=== PATIENT | female | born 1975 | race African-American/Black ===

== ENCOUNTER 2016-09-04 08:59 | Emergency (ER) | payer OTHER ==
[~2016-09-04] VITALS: Ht 167.6 cm; Wt 61.2 kg
[~2016-09-04 08:59] MED LIST: CYCLOBENZAPRINE10 MG ORAL; DOXYCYCLINE MO100 MG ORAL; GABAPENTIN300 MG ORAL; HYDROCODON-ACE1 EA15 ORAL; IBUPROFEN600 MG ORAL; IBUPROFEN800 MG ORAL; LEVAQUIN500 MG ORAL; LEVAQUIN750 MG ORAL; MACROBID100 MG ORAL; METRONIDAZOLE500 MG ORAL; NKM; TESSALON PERLE100 MG ORAL; TRAMADOL HCL50 MG ORAL
[2016-09-04 09:17] VITALS: BP 130/89
[2016-09-04] MEDS ORDERED: Lidocaine 1% 10mg/ml/EPI 0.01mg/ml 50ml INJ ONE (10:15)
--- NOTE | 2016-09-04 11:46 | Diagnostic Imaging Report ---
Indication: PAIN Technique: 3 views right hand Comparison: none Findings: Metallic foreign body, presumably the broken off tip of a needle, measuring approximately 13 mm length projects immediately medial and posterior to the third metacarpal phalangeal joint. There is some associated soft tissue swelling. No associated bony abnormality. No acute fractures. No dislocations. Impression: Positive for foreign body No acute bony trauma Findings discussed by phone with Dr. Candelaria in the emergency room at the time of interpretation
[2016-09-04] MEDS ORDERED: Bacitracin Oint UD TOPIC ONE (12:24)
[2016-09-04 12:32] VITALS: BP 121/76
--- NOTE | 2016-09-04 12:49 | Diagnostic Imaging Report ---
Indication: PAIN Technique: 3 views right hand Comparison: none Findings: Previously demonstrated foreign body persists, position unchanged adjacent to the third metacarpal phalangeal joint. Threads are now more clearly identified on the prior exam, and the foreign body appears to be a screw rather than a needle. Impression: Unchanged foreign body, as described. Findings discussed by phone with Dr. Candelaria in the emergency room previously
--- NOTE | 2016-09-07 07:58 | Emergency Room Report ---
History of Present Illness General Chief Complaint: Pain Source: Patient, Medical Record Present Illness HPI [id number] c/o severe pain for 1 day to right third knuckle. Patient felt acute sharp pain to area while tucking bed sheets into bed at home. Noticed small puncture wound at base of 3rd knuckle but couldnt see anything else. C./o pain and swelling to area. Denies fever/chills, pus. Allergies: Coded Allergies: FISH CONTAINING PRODUCTS (Unverified Allergy, Unknown, 01/26/14) SULFA (SULFONAMIDE ANTIBIOTICS) (Unverified Allergy, Unknown, 01/26/14) TRAMADOL (Verified Allergy, Unknown, 09/04/16) Patient History Past Medical History: none Past Surgical History: none Pertinent Family History: none Social History: Denies: alcohol use, drug use, smoking Last Menstrual Period: 08/22/16 Now: No Immunizations: UTD Reviewed Nursing Documentation: PMH: Agreed, PSxH: Agreed Nursing Documentation-PMH Past Medical History: No History, Except For Hx Gastrointestinal Problems: No - C/S in 2013 Review of Systems All Other Systems: negative except mentioned in HPI Physical Exam Vital Signs Date Time Temp Pulse Resp B/P Pulse Ox O2 Delivery O2 Flow Rate FiO2 09/04/16 09:08 97.5 59 16 130/89 98 Room Air Sp02 EP Interpretation: reviewed, normal General Appearance: normal inspection, well appearing, no apparent distress, alert, GCS 15, non-toxic Head: normocephalic, atraumatic Eyes: bilateral eye EOMI, bilateral eye PERRL ENT: normal ENT inspection, hearing grossly normal, normal voice Neck: normal inspection, full range of motion, supple, no bony tend Respiratory: normal inspection, lungs clear, normal breath sounds, no respiratory distress, no retraction, no wheezing Cardiovascular #1: regular rate, rhythm, no edema Gastrointestinal: normal inspection, normal bowel sounds, non tender, soft, no guarding, no hernia Genitourinary: no CVA tenderness Musculoskeletal: normal inspection, back normal, normal range of motion, Collette' s Sign negative Neurologic: normal inspection, alert, oriented x3, responsive, broomcorn scraper III-XII nml as tested, motor strength/tone normal, speech normal Psychiatric: normal inspection, judgement/insight normal, mood/affect normal Skin: other - Right hand: dorsal aspect. punctate healing wound to base of 3rd knucle. Palpable FB beneath surface. No obvious redness, swelling, erythema. Procedures Additional Procedure Procedure Narrative Foreign body removal Dorsal aspect of 3rd metacarpal joint Area cleaned with betadine Area asthesized with lidocaine with epi Scalpel incision made over knuckle Incision widened with forceps Metal FB identified and extracted with forceps 2.5cm piece of metal vs screw Medical Decision Making Diagnostic Impression: Primary Impression: Foreign body (FB) in soft tissue ER Course FB seen on serial xrays Second xray done to see if FB was removed However FB was removed AFTER the 2nd xray 2.5cm thin, sharp piece of metal No sign of infection Abx unnecessary at this time Advised monitoring for signs of infection PMD followup as needed Last Vital Signs Date Time Temp Pulse Resp B/P Pulse Ox O2 Delivery O2 Flow Rate FiO2 09/04/16 12:32 66 16 121/76 98 Room Air 09/04/16 12:31 97.5 Status: improved Disposition: HOME, SELF-CARE Condition: Improved Additional Instructions: - Keep area clean and dry; keep covered with bandage - Wash daily with soap and water only - Return to ER for fever/chills, redness/swelling or pus discharge from wound APRIL WILLIAMSON M.D. September 07, 2016 07:58
== END 2016-09-04 12:31 | disposition home or self-care (01) ==
LOC: EMR 09:33
DX: M79.5 Residual foreign body in soft tissue (principal); Z88.6 Allergy status to analgesic agent; Z88.0 Allergy status to penicillin; Z91.018 Allergy to other foods
CPT/HCPCS: 20520; 73130; 99284; Z7502

== ENCOUNTER 2016-10-01 11:34 | Emergency (ER) | payer OTHER ==
[~2016-10-01] VITALS: Ht 167.6 cm; Wt 61.7 kg
[2016-10-01] MEDS ORDERED: BENADRYL25 MG ORAL (12:06)
[2016-10-01] MEDS ORDERED: PREDNISONE20 MG ORAL (12:06)
--- NOTE | 2016-10-01 12:10 | Emergency Room Report ---
History of Present Illness General Chief Complaint: Allergic Reaction Source: Patient Present Illness HPI Patient's 41-year-old female presented after increased scalp redness and swelling. The patient reportedly had dyed her hair yesterday with Bigen 59 black hair dye. She reported having increased swelling to her scalp and itching and discharge. Allergies: Coded Allergies: FISH CONTAINING PRODUCTS (Unverified Allergy, Unknown, 01/26/14) SULFA (SULFONAMIDE ANTIBIOTICS) (Unverified Allergy, Unknown, 01/26/14) TRAMADOL (Verified Allergy, Unknown, 09/04/16) Patient History Past Medical History: see triage record Last Menstrual Period: 5-18 Now: No Reviewed Nursing Documentation: PMH: Agreed, PSxH: Agreed Nursing Documentation-PMH Past Medical History: No Stated History Hx Gastrointestinal Problems: No - C/S in 2013 Review of Systems All Other Systems: negative except mentioned in HPI Physical Exam Vital Signs Date Time Temp Pulse Resp B/P Pulse Ox O2 Delivery O2 Flow Rate FiO2 10/01/16 11:45 98.1 89 18 126/84 98 Room Air General Appearance: well appearing, no apparent distress, alert, GCS 15 Head: atraumatic, other - scalp swelling forehead swelling mild, scalp slight weeping ENT: hearing grossly normal, normal voice Neck: full range of motion, supple Respiratory: no respiratory distress, speaking full sentences Musculoskeletal: no calf tenderness Neurologic: normal gait Psychiatric: mood/affect normal Skin: no rash Medical Decision Making Diagnostic Impression: Primary Impression: Contact dermatitis ER Course Patient presented for skin rash. Differential diagnoses include was noted to contact dermatitis, cellulitis, chemical burn, infection among others. Patient' s benign exam and does not appear to require any further imaging or laboratory testing at this time. The patient was given oral steroids as well as antihistamines. The patient is advised to continue decontamination of her hair. She is advised to have the wound rechecked with primary care physician in the next one to 2 days. The patient is advised to follow up with primary care doctor in 1-2 days. Patient is advised to return if any worsening condition or if any changes in status that are concerning. Last Vital Signs Date Time Temp Pulse Resp B/P Pulse Ox O2 Delivery O2 Flow Rate FiO2 10/01/16 11:45 98.1 89 18 126/84 98 Room Air Status: unchanged Disposition: HOME, SELF-CARE Condition: Stable Scripts Diphenhydramine Hcl* (BENADRYL*) 25 Mg Capsule 25 MG ORAL Q6H Y for Itching, #30 CAP Prov: Jaya Abad 10/01/16 Prednisone* (PREDNISONE*) 20 Mg Tablet 60 MG ORAL DAILY, #12 TAB Prov: Jaya Abad 10/01/16 Patient Instructions: Contact Dermatitis Jaya Abad October 01, 2016 12:10
[2016-10-01] MEDS ORDERED: PredniSONE 20mg tab ORAL ONE (12:15)
[2016-10-01] MEDS ORDERED: DiphenhydrAMINE 25mg/10ml Elixir ORAL ONE (12:15)
[2016-10-01 12:17] VITALS: BP 128/82
[2016-10-01 12:18] VITALS: BP 126/84
== END 2016-10-01 12:19 | disposition home or self-care (01) ==
LOC: EMR 12:00
DX: L25.2 Unspecified contact dermatitis due to dyes (principal); Z88.6 Allergy status to analgesic agent; Z88.2 Allergy status to sulfonamides; Z91.013 Allergy to seafood
CPT/HCPCS: 99284

== ENCOUNTER 2017-05-28 17:17 | Emergency (ER) | payer OTHER ==
[~2017-05-28] VITALS: Ht 167.6 cm; Wt 61.7 kg
[~2017-05-28 17:17] MED LIST changes: +BENADRYL25 MG ORAL; +PREDNISONE20 MG ORAL
[2017-05-28 17:37] VITALS: BP 156/86
[2017-05-28] MEDS ORDERED: AMOXICILLIN500 MG ORAL (17:47)
[2017-05-28] MEDS ORDERED: IBUPROFEN600 MG ORAL (17:47)
--- NOTE | 2017-05-28 17:50 | Emergency Room Report ---
History of Present Illness General Chief Complaint: Sore Throat Source: Patient Present Illness HPI Patient present with complaints of runny nose or sore throat Symptoms ongoing since this morning Denies any neck pain or photophobia she does feel some lymph nodes swollen Denies any vomiting or diarrhea Sore throat is 3/10 She has a mild cough Denies any rash Patient does report recent sick contact Allergies: Coded Allergies: FISH CONTAINING PRODUCTS (Unverified Allergy, Unknown, 01/26/14) SULFA (SULFONAMIDE ANTIBIOTICS) (Unverified Allergy, Unknown, 01/26/14) TRAMADOL (Verified Allergy, Unknown, 09/04/16) Patient History Past Medical History: see triage record Pertinent Family History: none Last Menstrual Period: 04/16/17 Now: No Reviewed Nursing Documentation: PMH: Agreed, PSxH: Agreed Nursing Documentation-PMH Past Medical History: No History, Except For Hx Gastrointestinal Problems: No - C/S in 2013 Review of Systems All Other Systems: negative except mentioned in HPI Physical Exam Vital Signs Date Time Temp Pulse Resp B/P (MAP) Pulse Ox O2 Delivery O2 Flow Rate FiO2 05/28/17 17:31 98.1 54 16 156/86 97 Room Air Sp02 EP Interpretation: reviewed, normal General Appearance: well appearing, no apparent distress Head: normocephalic, atraumatic Eyes: bilateral eye PERRL, bilateral eye EOMI ENT: hearing grossly normal, TMs + canals normal, uvula midline, pharyngeal erythema Neck: full range of motion, supple, no meningismus, no bony tend Respiratory: lungs clear, normal breath sounds, no rhonchi, no respiratory distress, no retraction, no accessory muscle use Cardiovascular #1: normal peripheral pulses, regular rate, rhythm, no edema, no gallop, no JVD, no murmur Gastrointestinal: normal bowel sounds, non tender, soft, no mass, no organomegaly, non-distended, no guarding, no hernia, no pulsatile mass, no rebound Genitourinary: no CVA tenderness Musculoskeletal: normal inspection Neurologic: oriented x3, responsive, internet architect III-XII nml as tested, motor strength/ tone normal, sensory intact Psychiatric: mood/affect normal Skin: normal color, no rash, warm/dry, palpation normal Lymphatic: normal inspection, no adenopathy Medical Decision Making Diagnostic Impression: Primary Impression: pharyngitis ER Course Patient's clinical findings are in line with pharyngitis At this time the patient does not appear septic or toxic will have initial conservative outpatient trial No evidence of peritonsillar abscess I do not suspect retropharyngeal abscess Last Vital Signs Date Time Temp Pulse Resp B/P (MAP) Pulse Ox O2 Delivery O2 Flow Rate FiO2 05/28/17 17:37 98.1 52 16 156/86 97 Room Air Status: unchanged Disposition: HOME, SELF-CARE Condition: Stable Scripts Ibuprofen* (MOTRIN*) 600 Mg Tablet 600 MG ORAL Q8H Y for For Pain, #20 TAB 0 Refills Prov: SERJIO PENA D.O. 05/28/17 Amoxicillin* (AMOXIL*) 500 Mg Capsule 500 MG ORAL THREE TIMES A DAY, #21 CAP Prov: SERJIO PENA D.O. 05/28/17 Patient Instructions: Pharyngitis, [id number] Additional Instructions: Patient is provided with the discharge instructions notified to follow up with primary doctor in the next 2-3 days otherwise return to the er with any worsening symptoms. Please note that this report is being documented using [employer] technology. This can lead to erroneous entry secondary to incorrect interpretation by the dictating instrument. SERJIO PENA D.O. May 28, 2017 17:50
[2017-05-28 18:30] VITALS: BP 156/86
== END 2017-05-28 18:30 | disposition home or self-care (01) ==
LOC: EMR 17:53
DX: J02.9 Acute pharyngitis, unspecified (principal); Z88.2 Allergy status to sulfonamides; Z88.6 Allergy status to analgesic agent; Z91.018 Allergy to other foods
CPT/HCPCS: 99283

== ENCOUNTER 2017-06-05 14:54 | Emergency (ER) | payer OTHER ==
[~2017-06-05] VITALS: Ht 167.6 cm; Wt 59.0 kg
[~2017-06-05 14:54] MED LIST changes: +AMOXICILLIN500 MG ORAL
[2017-06-05 15:01] VITALS: BP 146/87
[2017-06-05] MEDS ORDERED: Albuterol ud Inhalation HHN ONE (15:45)
--- NOTE | 2017-06-05 16:14 | Emergency Room Report ---
History of Present Illness General Chief Complaint: Sore Throat Present Illness HPI 41-year-old female presents to the emergency department complaining of recurrent sore throat that is 8/10 in severity with tender neck lymph nodes bilaterally. She also reports persistent cough, and nasal congestion. Patient reports chills she denies fevers. Son is also a sick contact being evaluated today. Denies high fevers, lethargy, neck stiffness, irritability, photophobia dehydration, N/V/D. Denies Cp, Palpitations, LOC, AMS, seizures, paresthesias, or changes in Hearing or vision, no Sudden severe GILBERT Allergies: Coded Allergies: FISH CONTAINING PRODUCTS (Unverified Allergy, Unknown, 01/26/14) SULFA (SULFONAMIDE ANTIBIOTICS) (Unverified Allergy, Unknown, 01/26/14) TRAMADOL (Verified Allergy, Unknown, 09/04/16) Patient History Past Medical History: see triage record Past Surgical History: none Pertinent Family History: none Now: No Immunizations: UTD Reviewed Nursing Documentation: PMH: Agreed, PSxH: Agreed Nursing Documentation-PMH Hx Gastrointestinal Problems: No - C/S in 2013 Review of Systems All Other Systems: negative except mentioned in HPI Physical Exam Vital Signs Date Time Temp Pulse Resp B/P (MAP) Pulse Ox O2 Delivery O2 Flow Rate FiO2 06/05/17 14:58 97.7 78 20 146/87 98 Room Air Sp02 EP Interpretation: reviewed, normal General Appearance: no apparent distress, alert, GCS 15, non-toxic Head: normocephalic, atraumatic Eyes: bilateral eye normal inspection, bilateral eye PERRL ENT: hearing grossly normal, normal pharynx, normal voice, TMs + canals normal , uvula midline, moist mucus membranes, nasal congestion, pharyngeal erythema Neck: full range of motion, no meningismus, no bony tend, other - submandibular LAD bilat. Respiratory: chest non-tender, lungs clear, normal breath sounds, speaking full sentences, wheezing Cardiovascular #1: regular rate, rhythm, no edema, normal capillary refill Rectal: deferred Musculoskeletal: back normal, gait/station normal, normal range of motion, non- tender Neurologic: alert, oriented x3, responsive, motor strength/tone normal, sensory intact, normal gait, speech normal, grossly normal Psychiatric: judgement/insight normal Skin: normal color, no rash, warm/dry, well hydrated Lymphatic: other - submandibular LAD bilat. Medical Decision Making PA Attestation Dr. Abad is my supervising Physician whom patient management has been discussed with. Diagnostic Impression: Primary Impression: Sore throat Additional Impressions: Upper respiratory infection, viral Bronchitis ER Course 41-year-old female presents to the emergency department complaining of recurrent sore throat that is 8/10 in severity with tender neck lymph nodes bilaterally. She also reports persistent cough, and nasal congestion. Patient reports chills she denies fevers. Son is also a sick contact being evaluated today. Denies high fevers, lethargy, neck stiffness, irritability, photophobia dehydration, N/V/D. Denies Cp, Palpitations, LOC, AMS, seizures, paresthesias, or changes in Hearing or vision, no Sudden severe GILBERT Ddx considered but are not limited to URI, pneumonia, PE, strep pharyngitis, meningitis. Vital signs: Pt.is afebrile VS are WNL H&PE are most consistent with bronchitis, Pt does not meet [facility] criteria. ORDERS: none required at this time, the diagnosis is clinical ED INTERVENTIONS: -Albuterol NEBS DISCHARGE: At this time pt. is stable for d/c to home. Will provide printed patient care instructions, and any necessary prescriptions. Care plan and follow up instructions have been discussed with the patient prior to discharge. Last Vital Signs Date Time Temp Pulse Resp B/P (MAP) Pulse Ox O2 Delivery O2 Flow Rate FiO2 06/05/17 16:04 68 14 100 Room Air 06/05/17 15:01 97.7 146/87 Disposition: HOME, SELF-CARE Condition: Stable Scripts Acetaminophen* (TYLENOL EXTRA STRENGTH*) 500 Mg Tablet 500 MG ORAL Q6H Y for Mild Pain/Temp > 100.5, #20 TAB 0 Refills Prov: Helen White P.A. 06/05/17 Lidocaine HCl 2% Viscous (Lidocaine HCl 2% Viscous) 100 Ml Solution 15 ML ORAL QID, #240 ML Prov: Helen White P.A. 06/05/17 Codeine/Promethazine Hcl* (PROMETHAZINE-CODEINE SYRUP*) 118 Ml Syrup 5 ML ORAL Q4H Y for For Cough, #120 ML 0 Refills Prov: Helen White P.A. 06/05/17 Albuterol Sulfate* (ALBUTEROL SULFATE HHN*) 2.5 Mg/3 Ml Vial.neb 3 ML INH Q4H Y for Shortness of Breath, #30 EA Prov: Helen White 06/05/17 Referrals: NOMAN LI,REFERRING (PCP) Patient Instructions: Sore Throat, Upper Respiratory Infection, Adult, Easy-to- Read Additional Instructions: Take medications as directed. Follow up with a Primary Care Provider in 3-5 days, even if your symptoms have resolved. --Please review list of primary care clinics, if you do not already have a primary care provider Return sooner to ED if new symptoms occur, or current symptoms become worse. Do not drink alcohol, drive, or operate heavy machinery while taking Cough Syrup as this may cause drowsiness. - Please note that this Emergency Department Report was dictated using [employer] technology software, occasionally this can lead to erroneous entry secondary to interpretation by the dictation equipment. Helen White Jun 05, 2017 16:14
[2017-06-05] MEDS ORDERED: LIDOCAINE VISC100 ML ORAL (16:17)
[2017-06-05] MEDS ORDERED: TYLENOL EXTRA500 MG ORAL (16:17)
[2017-06-05] MEDS ORDERED: ALBUTEROL2.5 MG/3 M INH (16:17)
[2017-06-05] MEDS ORDERED: PROMETHAZINE-C118 M1 ORAL (16:17)
[2017-06-05 16:32] VITALS: BP 146/87
== END 2017-06-05 16:32 | disposition home or self-care (01) ==
LOC: EMR 16:00
DX: J06.9 Acute upper respiratory infection, unspecified (principal); B97.89 Other viral agents as the cause of diseases classified elsewhere; J40 Bronchitis, not specified as acute or chronic; Z88.6 Allergy status to analgesic agent; Z88.2 Allergy status to sulfonamides; Z91.013 Allergy to seafood
CPT/HCPCS: 94640; 94664; 99283

== ENCOUNTER 2017-06-23 11:16 | Emergency (ER) | payer OTHER ==
[~2017-06-23] VITALS: Ht 167.6 cm; Wt 60.3 kg
[~2017-06-23 11:16] MED LIST changes: +ALBUTEROL2.5 MG/3 M INH; +LIDOCAINE VISC100 ML ORAL; +PROMETHAZINE-C118 M1 ORAL; +TYLENOL EXTRA500 MG ORAL
[2017-06-23 11:29] VITALS: BP 131/78
[2017-06-23 12:15] VITALS: BP 131/78
--- NOTE | 2017-06-23 15:09 | Emergency Room Report ---
History of Present Illness General Chief Complaint: Upper Respiratory Illness Source: Patient, Medical Record Present Illness HPI 41-year-old female presents ED for evaluation. States she's been expressing cough, runny nose, bodyaches x2 days. Cough is dry. Afebrile in triage. Pain is dull, 5/10, nonradiating. States her daughter is also sick. Denies recent travel. No other aggravating or relieving factors. Denies any other associated symptoms Allergies: Coded Allergies: FISH CONTAINING PRODUCTS (Unverified Allergy, Unknown, 01/26/14) SULFA (SULFONAMIDE ANTIBIOTICS) (Unverified Allergy, Unknown, 01/26/14) TRAMADOL (Verified Allergy, Unknown, 09/04/16) Patient History Past Medical History: none Past Surgical History: none Pertinent Family History: none Social History: Denies: smoking, alcohol use, drug use Last Menstrual Period: 06/09/17 Immunizations: UTD Reviewed Nursing Documentation: PMH: Agreed, PSxH: Agreed Nursing Documentation-PMH Past Medical History: No History, Except For Hx Gastrointestinal Problems: No - C/S in 2013 Review of Systems All Other Systems: negative except mentioned in HPI Physical Exam Vital Signs Date Time Temp Pulse Resp B/P (MAP) Pulse Ox O2 Delivery O2 Flow Rate FiO2 06/23/17 11:23 97.7 56 18 131/78 95 Room Air 97.7 Sp02 EP Interpretation: reviewed, normal General Appearance: no apparent distress, alert, GCS 15, non-toxic Head: normocephalic, atraumatic Eyes: bilateral eye normal inspection, bilateral eye PERRL ENT: hearing grossly normal, normal pharynx, no angioedema, normal voice Neck: full range of motion, supple/symm/no masses Respiratory: chest non-tender, lungs clear, normal breath sounds, speaking full sentences Cardiovascular #1: regular rate, rhythm, no edema Cardiovascular #2: 2+ carotid (R), 2+ carotid (L), 2+ radial (R), 2+ radial (L) , 2+ dorsalis pedis (R), 2+ dorsalis pedis (L) Gastrointestinal: normal bowel sounds, non tender, soft, non-distended, no guarding, no rebound Rectal: deferred Genitourinary: normal inspection, no CVA tenderness Musculoskeletal: back normal, gait/station normal, normal range of motion, non- tender Neurologic: alert, oriented x3, responsive, motor strength/tone normal, sensory intact, speech normal Psychiatric: judgement/insight normal, memory normal, mood/affect normal, no suicidal/homicidal ideation Reflexes: 3+ bicep (R), 3+ bicep (L), 3+ tricep (R), 3+ tricep (L), 3+ knee (R) , 3+ knee (L) Skin: normal color, no rash, warm/dry, well hydrated Lymphatic: no adenopathy Medical Decision Making Diagnostic Impression: Primary Impression: URI (upper respiratory infection) Qualified Codes: J06.9 - Acute upper respiratory infection, unspecified ER Course Hospital Course 41-year-old female presents to ED complaining of cough, runny nose with bodyaches Differential diagnoses include: URI, pharyngitis, otitis media, asthma Clinical course Patient placed on stretcher. After initial history, physical exam reveals a female in no acute distress. Bilateral TM unremarkable. No pharyngeal erythema. No tonsillar exudates. No lymphadenopathy. lungs clear. abdomen soft. Clinical findings consistent with URI. Reassurance given. treatment is supportive therapy Diagnosis - URI Stable and discharged home. Instructed to followup with PMD. Return to ED if symptoms recur or worsen Last Vital Signs Date Time Temp Pulse Resp B/P (MAP) Pulse Ox O2 Delivery O2 Flow Rate FiO2 06/23/17 12:15 97.7 18 131/78 95 Room Air 97.7 06/23/17 11:29 56 Status: improved Disposition: HOME, SELF-CARE Condition: Stable Referrals: NOMAN LIREFERRING (PCP) Patient Instructions: Upper Respiratory Infection, Adult ALEXX SMART M.D. Jun 23, 2017 15:09
== END 2017-06-23 12:16 | disposition home or self-care (01) ==
LOC: EMR 11:42
DX: J06.9 Acute upper respiratory infection, unspecified (principal); Z90.13 Acquired absence of bilateral breasts and nipples; Z88.2 Allergy status to sulfonamides; Z88.6 Allergy status to analgesic agent
CPT/HCPCS: 99282

== ENCOUNTER 2017-06-25 10:33 | Emergency (ER) | payer OTHER ==
[~2017-06-25] VITALS: Ht 167.6 cm; Wt 61.2 kg
[2017-06-25 10:51] VITALS: BP 129/66
[2017-06-25] MEDS ORDERED: TAMIFLU75 MG ORAL (11:23)
[2017-06-25] MEDS ORDERED: TESSALON PERLE100 M2 ORAL (11:23)
[2017-06-25 11:50] VITALS: BP 129/66
--- NOTE | 2017-06-25 11:52 | Emergency Room Report ---
History of Present Illness General Chief Complaint: Upper Respiratory Illness Source: Patient Present Illness HPI 41-year-old female presents with fever, chills, cough, runny nose for 3 days. Cough is productive with clear phlegm. Pt still eating/drinking well, however complaining of mild nausea +sick contacts, daughter is sick. No recent travel. No SOB, cp, abdominal pain Allergies: Coded Allergies: FISH CONTAINING PRODUCTS (Unverified Allergy, Unknown, 01/26/14) SULFA (SULFONAMIDE ANTIBIOTICS) (Unverified Allergy, Unknown, 01/26/14) TRAMADOL (Verified Allergy, Unknown, 09/04/16) Patient History Past Medical History: see triage record Past Surgical History: none Pertinent Family History: none Now: No Reviewed Nursing Documentation: PMH: Agreed, PSxH: Agreed Nursing Documentation-PMH Past Medical History: No Stated History Hx Gastrointestinal Problems: No - C/S in 2013 Review of Systems All Other Systems: negative except mentioned in HPI Physical Exam Vital Signs Date Time Temp Pulse Resp B/P (MAP) Pulse Ox O2 Delivery O2 Flow Rate FiO2 06/25/17 10:41 97.7 78 19 129/66 97 Room Air 97.7 Sp02 EP Interpretation: reviewed, normal General Appearance: normal inspection, well appearing, no apparent distress, alert, GCS 15, non-toxic Head: normocephalic, atraumatic Eyes: bilateral eye normal inspection, bilateral eye PERRL, bilateral eye EOMI ENT: normal ENT inspection, normal pharynx, normal voice, moist mucus membranes Neck: normal inspection, full range of motion, supple Respiratory: normal inspection, lungs clear, normal breath sounds, no respiratory distress, no retraction, no wheezing, speaking full sentences, chest symmetrical Cardiovascular #1: normal inspection, regular rate, rhythm, no edema, normal capillary refill Cardiovascular #2: 2+ radial (R), 2+ radial (L) Gastrointestinal: normal inspection, non tender, soft, non-distended, no guarding Musculoskeletal: normal inspection, back normal, normal range of motion, non- tender Neurologic: normal inspection, alert, oriented x3, responsive, motor strength/ tone normal, sensory intact, normal gait, speech normal Psychiatric: normal inspection, judgement/insight normal, memory normal Skin: normal inspection, normal color, no rash, warm/dry, well hydrated, normal turgor Medical Decision Making Diagnostic Impression: Primary Impression: URI (upper respiratory infection) ER Course 41-year-old female p/w fever, chills, runny nose, cough Appears non- toxic, well hydrated, tolerating PO DDX: Viral URI / pneumonia Plan: Zofran ER course: Pt stable in ED, remains nontoxic appearing, no sob. Tolerating PO, drinking coffee in the emergency room Vital signs normal, not in respiratory distress Disposition: Patient discharged to home with Tessalon Matt and Tamiflu Patient instructed to follow up with PMD in 1 week. Also instructed to take motrin/tylenol at home. Very strict return precautions discussed with patient such as intractable fever and chills, unable to eat or drink, severe chest pain or shortness of breath. Patient verbalized understanding and agrees with plan. Please note that this Emergency Department Report was dictated using [employer] technology software, occasionally this can lead to erroneous entry secondary to interpretation by the dictation equipment Chest X-ray CXR: Ordered: Yes 1 view Indication: cough EP interpretation: Yes Interpretation: No consolidation, no effusion, no PTX, no acute cardiopulmonary disease Impression: No acute disease Electronically signed by Micheline Jalloh MD Last Vital Signs Date Time Temp Pulse Resp B/P (MAP) Pulse Ox O2 Delivery O2 Flow Rate FiO2 06/25/17 10:51 97.7 78 18 129/66 97 Room Air 97.7 Disposition: HOME, SELF-CARE Condition: Improved Scripts Benzonatate (Mariamsalon Perlmela) 100 Mg Capsule 100 MG ORAL THREE TIMES A DAY for 7 Days, #21 PERLE Prov: Micheline Jalloh M.D. 06/25/17 Oseltamivir Phosphate (Tamiflu) 75 Mg Capsule 75 MG ORAL DAILY for 5 Days, #10 CAP 0 Refills Prov: Micheline Jalloh M.D. 06/25/17 Referrals: NOMAN LI,REFERRING (PCP) Patient Instructions: Upper Respiratory Infection, Adult Micheline Jalloh M.D. Jun 25, 2017 11:52
--- NOTE | 2017-06-25 13:02 | Diagnostic Imaging Report ---
Indication: Cough Technique: One view of the chest Comparison: 08/31/2015 Findings: Lungs and pleural spaces are clear. Heart size is normal . No significant change Impression: No acute process
== END 2017-06-25 12:05 | disposition home or self-care (01) ==
LOC: EMR 10:40
DX: J06.9 Acute upper respiratory infection, unspecified (principal); Z91.013 Allergy to seafood; Z88.2 Allergy status to sulfonamides; Z88.6 Allergy status to analgesic agent
CPT/HCPCS: 71045; 99284

== ENCOUNTER 2017-06-28 11:28 | Emergency (ER) | payer OTHER ==
[~2017-06-28] VITALS: Ht 167.6 cm; Wt 58.1 kg
[~2017-06-28 11:28] MED LIST changes: +TAMIFLU75 MG ORAL; +TESSALON PERLE100 M2 ORAL
[2017-06-28 11:57] VITALS: BP 116/83
[2017-06-28] MEDS ORDERED: Albuterol/Ipratropium 3ml neb HHN ONE (12:15)
--- NOTE | 2017-06-28 12:19 | Emergency Room Report ---
History of Present Illness General Chief Complaint: Upper Respiratory Illness Source: Patient Present Illness HPI 41 yo female patient presents to ER complaining of flu-like symptoms and cough since June 24. Patient reports subjective fever and chills. Patient reports purulent cough with green mucus. States feels like when she had pneumonia previously. Denies history of asthma and cardiovascular disease. Patient reports chest pain; states pain is reproducible with coughing. Patient complains of GILBERT; states GILBERT began after coughing symptoms. Patient reports previously being seen in ER twice for similar symptoms; reports taking Tamiflu at home; states she is still taking the medication. Patient also complains of diarrhea and vomiting x1 day. Patient reports only drinking liquids during this time. Denies blood in stool or vomit. Denies use of pain medication today for pain symptoms; took Tylenol yesterday at night. Denies recent travel. Denies abdominal pain, rash, vision changes, dysuria, hematuria. Allergies: Coded Allergies: FISH CONTAINING PRODUCTS (Unverified Allergy, Unknown, 01/26/14) SULFA (SULFONAMIDE ANTIBIOTICS) (Unverified Allergy, Unknown, 01/26/14) TRAMADOL (Verified Allergy, Unknown, 09/04/16) Patient History Past Medical History: see triage record Last Menstrual Period: 06/19/2017 Now: No Reviewed Nursing Documentation: PMH: Agreed, PSxH: Agreed Nursing Documentation-PMH Past Medical History: No Stated History Hx Cardiac Problems: No Hx Hypertension: No Hx Pacemaker: No Hx Asthma: No Hx COPD: No Hx Diabetes: No Hx Cancer: No Hx Gastrointestinal Problems: No Hx Dialysis: No History Of Psychiatric Problem: No Hx Neurological Problems: No Hx Cerebrovascular Accident: No Hx Seizures: No Review of Systems All Other Systems: negative except mentioned in HPI Physical Exam Vital Signs Date Time Temp Pulse Resp B/P (MAP) Pulse Ox O2 Delivery O2 Flow Rate FiO2 06/28/17 11:41 97.5 76 16 116/83 98 Room Air 97.5 General Appearance: alert, GCS 15, non-toxic, mild distress - crying with tears Head: normocephalic, atraumatic Eyes: bilateral eye normal inspection, bilateral eye PERRL ENT: hearing grossly normal, normal pharynx, normal voice, TMs + canals normal , uvula midline, moist mucus membranes Neck: normal inspection, full range of motion, no bony tend Respiratory: no rhonchi, no accessory muscle use, speaking full sentences, wheezing - diffuse, intermittent Cardiovascular #1: regular rate, rhythm Cardiovascular #2: 2+ radial (R), 2+ radial (L) Gastrointestinal: normal bowel sounds, non tender, soft, no mass, non-distended , no guarding, no rebound Genitourinary: no CVA tenderness Musculoskeletal: back normal, digits/nails normal, gait/station normal, normal range of motion, no calf tenderness Neurologic: alert, oriented x3, responsive, deposit refund clerk III-XII nml as tested, motor strength/tone normal, normal gait Psychiatric: mood/affect normal Skin: no rash Lymphatic: no adenopathy Medical Decision Making PA Attestation Dr. Reynolds is my supervising Physician whom patient management has been discussed with. Diagnostic Impression: Primary Impression: Atypical pneumonia Additional Impressions: Diarrhea Vomiting ER Course Pt presents to ED c/o flu-like symptoms and cough. DDX considered but are not limited to influenza, viral URI, pneumonia, bronchitis, UTI. VITAL SIGNS are WNL, patient is afebrile Ordered labs, CXR, EKG, and Zofran. Ordered breathing treatment for patient. ER COURSE: EKG no ST elevations, no arrhythmias CXR negative for acute disease UA negative for nitrites, positive for WBC and squamous epithelial cells, no current symptoms reported by patient; UTI unlikely. Urine negative. Results discussed with patient. Patient provided with breathing treatment and prednisone in ER. Patient reports feeling much better following breathing treatment. Lungs clear to auscultation bilaterally. Patient reports feeling hungry and would like to eat. Denies nausea. Discuss diet for patient while having symptoms of diarrhea and vomiting. BRAT Diet. Patient instructed to followup with primary care for further treatment and referral as needed. Patient informed chest pain and GILBERT likely secondary to cough symptoms; symptoms are reproducible with cough. Continue to take cough medication at home as needed. Will provide patient with inhaler and abx due to escalation of symptoms. Discussed treatment plan with patient. Patient reports understanding and agreement to treatment plan. DISCHARGE: At this time pt is stable for d/c to home. Patient stable for discharge home, in no acute distress, nontoxic appearing, resting comfortably. -Rx provided for Amoxicillin. -Rx provided for Albuterol. Drink lots of fluids to prevent dehydration. Continue to take Tamiflu for flu symptoms. Continue to take Tylenol for flu symptoms. Patient to take medications as instructed Will provide with patient care instructions and any necessary prescriptions. Care plan and follow-up instructions provided. Patient instructed to follow-up with primary care provider in 3 - 5 days for further treatment and referral as needed. Patient questions asked and answered. Patient reports understanding and agreement to treatment plan. ER precautions given. Patient instructed to return to ER immediately for any new or worsening of symptoms including but not limited to increasing SOB, persistent fever. Labs Test 06/28/17 12:50 Urine Color Yellow Urine Appearance Slightly cloudy Urine pH 6 (4.5-8.0) Urine Specific [place] 1.020 (1.005-1.035) Urine Protein 3+ (NEGATIVE) Urine Glucose (UA) Negative (NEGATIVE) Urine Ketones 1+ (NEGATIVE) Urine Occult Blood 1+ (NEGATIVE) Urine Nitrite Negative (NEGATIVE) Urine Bilirubin Negative (NEGATIVE) Urine Urobilinogen Normal MG/DL (0.0-1.0) Urine Leukocyte Esterase 1+ (NEGATIVE) Urine RBC 2-4 /HPF (0 - 2) Urine WBC 5-10 /HPF (0 - 2) Urine Squamous Epithelial Cells Many /LPF (NONE/OCC) Urine Bacteria Few /HPF (NONE) Urine HCG, Qualitative Negative EKG Diagnostic Results Rate: normal Rhythm: NSR ST Segments: no acute changes Other Impression Prolonged QT T wave abnormality ASA given to the pt in ED: No PA Scribe Shailesh Coe PA-C Rhythm Strip Diag. Results EP Interpretation: yes Rate: 65 Rhythm: NSR, no PVC's, no ectopy PA Scribe Shailesh Coe PA-C Chest X-Ray Diagnostic Results Chest X-Ray Diagnostic Results : Chest X-Ray Ordered: Yes Indication: Chest Pain EP Interpretation: Yes PA Xray: Interpretation reviewed, by supervising MD, and agrees with findings. Interpretation: no consolidation, no effusion, no pneumothorax, no acute cardiopulmonary disease Impression: No acute disease PA Scribe Shailesh Coe PA-C Last Vital Signs Date Time Temp Pulse Resp B/P (MAP) Pulse Ox O2 Delivery O2 Flow Rate FiO2 06/28/17 11:57 76 16 Room Air 06/28/17 11:57 97.5 116/83 98 97.5 Disposition: HOME, SELF-CARE Condition: Stable Scripts Amoxicillin* (AMOXIL*) 500 Mg Capsule 500 MG ORAL EVERY 8 HOURS for 7 Days, #14 CAP Prov: Keith Coe 06/28/17 Albuterol Sulfate* (ALBUTEROL SULFATE MDI*) 8.5 Gm Hfa.aer.ad 2 PUFF INH Q6H, #1 INH 0 Refills Prov: Keith Coe 06/28/17 Patient Instructions: Community-Acquired Pneumonia, Adult, [id number], Diarrhea, Adult, [id number], Nausea and Vomiting, Adult, [id number] Additional Instructions: Followup with primary care provider in 3 -5 days. Take medications as directed. Patient questions asked and answered. ER precautions given, patient instructed to return to ER immediately for any new or worsening of symptoms. Keith Coe Jun 28, 2017 12:19
[2017-06-28] MEDS ORDERED: ALBUTEROL SULF8.5 GM INH (13:05)
[2017-06-28] MEDS ORDERED: AMOXICILLIN500 MG ORAL (13:05)
[2017-06-28 13:44] LABS: APPEARANCE,URINE SLIGHTLY CLOUDY; BILIRUBIN, URINE NEGATIVE (NEGATIVE); GLUCOSE, URINE (UA) NEGATIVE (NEGATIVE); KETONES,URINE 1+ (NEGATIVE); LEUKOCYTE ESTERASE ,URINE 1+ (NEGATIVE); NITRITE,URINE NEGATIVE (NEGATIVE); PH,URINE 6 (4.5-8.0); PROTEIN,URINE 3+ (NEGATIVE); UROBILINOGEN,URINE NORMAL MG/DL (0.0-1.0)
[2017-06-28 13:46] LABS: COLOR,URINE YELLOW
--- NOTE | 2017-06-28 14:14 | Diagnostic Imaging Report ---
Indication: Painful breathing Technique: One view of the chest Comparison: 06/25/2017 Findings: Lungs and pleural spaces are clear. Heart size is normal. No significant interim change Impression: No acute process
[2017-06-28 15:18] VITALS: BP 116/83
--- NOTE | 2017-07-01 15:30 | Cardiology Report ---
APPROVED REPORT EKG Measurement Heart [id number] Normal sinus rhythm T wave abnormality, consider inferolateral ischemia Prolonged QT Abnormal ECG
== END 2017-06-28 14:00 | disposition home or self-care (01) ==
LOC: EMR 12:14
DX: J18.9 Pneumonia, unspecified organism (principal); R11.10 Vomiting, unspecified; R19.7 Diarrhea, unspecified; Z88.2 Allergy status to sulfonamides; Z88.6 Allergy status to analgesic agent
CPT/HCPCS: 71045; 81003; 81025; 93005; 94640; 94664; 99284; J7512; J7620

== ENCOUNTER 2017-11-01 11:47 | Emergency (ER) | payer OTHER ==
[~2017-11-01] VITALS: Ht 170.2 cm; Wt 61.7 kg
[~2017-11-01 11:47] MED LIST changes: +ALBUTEROL SULF8.5 GM INH
[2017-11-01] MEDS ORDERED: NKM (12:07)
[2017-11-01 12:13] VITALS: BP 126/80
[2017-11-01] MEDS ORDERED: Promethazine/Codeine 5ml UD ORAL ONE (12:30)
[2017-11-01] MEDS ORDERED: Albuterol/Ipratropium 3ml neb HHN ONE (12:30)
--- NOTE | 2017-11-01 13:14 | Emergency Room Report ---
History of Present Illness General Chief Complaint: Upper Respiratory Illness Source: Patient Present Illness HPI 42-year-old female presents emergency department complaining of persistent cough with wheezing 2 days. Patient reports history of asthma she states her albuterol treatments at home have not been working. Patient states onset of symptoms were after smoking hookah 3 days ago. Patient denies fevers reports 8 out of 10 in severity painful coughs with some clear sputum production and intermittent headache. Patient denies sudden onset of her headache. Patient denies neck pain or stiffness, recent travel or ill contacts.Denies CP, Palpitations, LOC, AMS, dizziness, Changes in Vision, Sensation, paresthesias, or a sudden severe headache. Allergies: Coded Allergies: FISH CONTAINING PRODUCTS (Unverified Allergy, Unknown, 01/26/14) SULFA (SULFONAMIDE ANTIBIOTICS) (Unverified Allergy, Unknown, 01/26/14) TRAMADOL (Verified Allergy, Unknown, 09/04/16) Patient History Past Medical History: see triage record, asthma Past Surgical History: none Pertinent Family History: none Last Menstrual Period: 10/18/17 Immunizations: UTD Reviewed Nursing Documentation: PMH: Agreed; PSxH: Agreed Nursing Documentation-PMH Past Medical History: No Stated History Hx Cardiac Problems: No Hx Hypertension: No Hx Pacemaker: No Hx Asthma: No Hx COPD: No Hx Diabetes: No Hx Cancer: No Hx Gastrointestinal Problems: No Hx Dialysis: No Hx Neurological Problems: No Hx Cerebrovascular Accident: No Hx Seizures: No Review of Systems All Other Systems: negative except mentioned in HPI Physical Exam Vital Signs Date Time Temp Pulse Resp B/P (MAP) Pulse Ox O2 Delivery O2 Flow Rate FiO2 11/01/17 12:05 98.4 80 18 126/80 99 Room Air 98.4 11/01/17 13:05 21 Sp02 EP Interpretation: reviewed, normal General Appearance: no apparent distress, alert, GCS 15, non-toxic Head: normocephalic, atraumatic Eyes: bilateral eye normal inspection, bilateral eye PERRL ENT: hearing grossly normal, normal voice Neck: full range of motion Respiratory: chest non-tender, lungs clear, speaking full sentences, wheezing Cardiovascular #1: regular rate, rhythm Musculoskeletal: back normal, gait/station normal, normal range of motion, non- tender Neurologic: alert, oriented x3, responsive, motor strength/tone normal, sensory intact, speech normal, grossly normal Psychiatric: judgement/insight normal Skin: normal color, no rash, warm/dry, well hydrated Lymphatic: no adenopathy Medical Decision Making PA Attestation Dr. gavin is my supervising Physician whom patient management has been discussed with. Diagnostic Impression: Primary Impression: Bronchitis ER Course 42-year-old female presents emergency department complaining of persistent cough with wheezing 2 days. Patient reports history of asthma she states her albuterol treatments at home have not been working. Patient states onset of symptoms were after smoking hookah 3 days ago. Patient denies fevers reports 8 out of 10 in severity painful coughs with some clear sputum production and intermittent headache. Patient denies sudden onset of her headache. Patient denies neck pain or stiffness, recent travel or ill contacts.Denies CP, Palpitations, LOC, AMS, dizziness, Changes in Vision, Sensation, paresthesias, or a sudden severe headache. Ddx considered but are not limited to URI, pneumonia, PE, strep pharyngitis, meningitis. Vital signs: Pt.is afebrile VS are WNL H&PE are most consistent with bronchitis ORDERS: none required at this time, the diagnosis is clinical ED INTERVENTIONS: - Duo neb. - PO Cough Syrup DISCHARGE: At this time pt. is stable for d/c to home. Will provide printed patient care instructions, and any necessary prescriptions. Care plan and follow up instructions have been discussed with the patient prior to discharge. Last Vital Signs Date Time Temp Pulse Resp B/P (MAP) Pulse Ox O2 Delivery O2 Flow Rate FiO2 11/01/17 13:05 77 20 98 Room Air 21 11/01/17 12:13 98.4 126/80 98.4 Disposition: HOME, SELF-CARE Condition: Stable Scripts Prednisone* (PREDNISONE*) 20 Mg Tablet 40 MG ORAL DAILY for 5 Days, #10 TAB Prov: Helen White 11/01/17 Albuterol Sulfate* (ALBUTEROL SULFATE MDI*) 8.5 Gm Hfa.aer.ad 2 PUFF INH Q4H, #1 INH 0 Refills Prov: Helen White 11/01/17 Codeine/Promethazine Hcl* (PROMETHAZINE-CODEINE SYRUP*) 118 Ml Syrup 5 ML ORAL Q6H PRN for For Cough, #120 ML 0 Refills Prov: Helen White 11/01/17 Departure Forms: Return to Work Return to Work Date: Nov 05, 2017 Work Restrictions: None Other Restrictions: may return sooner if symptoms resolve. Return to Full Activity: Nov 05, 2017 Patient Instructions: Acute Bronchitis, [id number] Additional Instructions: Take medications as directed. Follow up with a Primary Care Provider in 3-5 days, even if your symptoms have resolved. --Please review list of primary care clinics, if you do not already have a primary care provider Return sooner to ED if new symptoms occur, or current symptoms become worse. Do not drink alcohol, drive, or operate heavy machinery while taking Cough Syrup as this may cause drowsiness. - Please note that this Emergency Department Report was dictated using EVRYTHNGinjection molding supervisor technology software, occasionally this can lead to erroneous entry secondary to interpretation by the dictation equipment. Helen White Nov 01, 2017 13:14
[2017-11-01] MEDS ORDERED: ALBUTEROL SULF8.5 GM INH ×2 (13:16→13:29)
[2017-11-01] MEDS ORDERED: PROMETHAZINE-C118 M1 ORAL (13:16)
[2017-11-01] MEDS ORDERED: PREDNISONE20 MG ORAL ×2 (13:16→13:29)
[2017-11-01 13:36] VITALS: BP 145/96
== END 2017-11-01 13:35 | disposition home or self-care (01) ==
LOC: EMR 13:01
DX: J40 Bronchitis, not specified as acute or chronic (principal); Z88.2 Allergy status to sulfonamides; Z88.6 Allergy status to analgesic agent
CPT/HCPCS: 94640; 99284; J7620

== ENCOUNTER 2018-02-20 12:02 | Emergency (ER) | payer OTHER ==
[~2018-02-20] VITALS: Ht 167.6 cm; Wt 62.6 kg
[2018-02-20 12:23] VITALS: BP 129/85
[2018-02-20] MEDS ORDERED: Lidocaine 2% Visc 15ml soln ORAL ONE (12:30)
[2018-02-20] MEDS ORDERED: PROMETHAZINE-C118 M1 ORAL (12:35)
[2018-02-20] MEDS ORDERED: PREDNISONE20 MG ORAL (12:35)
[2018-02-20] MEDS ORDERED: ALBUTEROL SULF8.5 GM INH (12:35)
--- NOTE | 2018-02-20 12:36 | Emergency Room Report ---
History of Present Illness General Chief Complaint: Upper Respiratory Illness Source: Patient, Medical Record Present Illness HPI 42-year-old female patient presents ER complaining of cough for the past 3 days which dry cough. Denies hemoptysis. Denies recent travel or long periods of immobilization. Reports that she quit smoking 2 weeks ago. Reports cough has been keeping her awake at night. Reports history of similar symptoms in the past, previously seen in this ER for similar symptoms. Reports has a appointment with her primary care provider next week to get pneumonia vaccine. Reports has been taking NyQuil. Denies fever, chest pain, shortness of breath. Reports has been doing breathing treatments at home due to history of bronchitis and breathing problems, denies breathing problems currently. Denies abdominal pain. Reports sore throat during this time. Denies vomiting. Allergies: Coded Allergies: FISH CONTAINING PRODUCTS (Unverified Allergy, Unknown, 01/26/14) SULFA (SULFONAMIDE ANTIBIOTICS) (Unverified Allergy, Unknown, 01/26/14) TRAMADOL (Verified Allergy, Unknown, 09/04/16) Patient History Past Medical History: see triage record Last Menstrual Period: 02/02/18 Reviewed Nursing Documentation: PMH: Agreed; PSxH: Agreed Nursing Documentation-PMH Past Medical History: No Stated History Hx Cardiac Problems: No Hx Hypertension: No Hx Pacemaker: No Hx Asthma: No Hx COPD: No Hx Diabetes: No Hx Cancer: No Hx Gastrointestinal Problems: No Hx Dialysis: No Hx Neurological Problems: No Hx Cerebrovascular Accident: No Hx Seizures: No Review of Systems All Other Systems: negative except mentioned in HPI Physical Exam Vital Signs Date Time Temp Pulse Resp B/P (MAP) Pulse Ox O2 Delivery O2 Flow Rate FiO2 02/20/18 12:08 97.9 84 18 129/85 99 Room Air 97.9 Sp02 EP Interpretation: reviewed, normal General Appearance: well appearing, no apparent distress, alert, GCS 15, non- toxic Head: normocephalic, atraumatic Eyes: bilateral eye normal inspection, bilateral eye PERRL ENT: hearing grossly normal, normal pharynx, no angioedema, normal voice, TMs + canals normal, uvula midline, moist mucus membranes Neck: full range of motion, no bony tend Respiratory: lungs clear, normal breath sounds, no rhonchi, no respiratory distress, no accessory muscle use, no wheezing, speaking full sentences, other - no stridor Cardiovascular #1: regular rate, rhythm, no edema Gastrointestinal: non tender, soft, no mass, non-distended, no guarding, no rebound Musculoskeletal: back normal, digits/nails normal, gait/station normal, normal range of motion, non-tender, no calf tenderness, Collette's Sign negative Neurologic: alert, oriented x3, responsive, motor strength/tone normal, sensory intact Skin: no rash Lymphatic: no adenopathy Medical Decision Making PA Attestation Dr. Reynolds is my supervising Physician whom patient management has been discussed with. Diagnostic Impression: Primary Impression: Bronchitis ER Course Pt presents to ED c/o cough x3 days. DDX considered but are not limited to influenza, viral URI, pneumonia, strep throat, rhinitis, sinusitis, otitis media, otitis externa. no calf pain, negative Homans sign, appears immobilization, no tachycardia, no shortness of breath, low suspicion for PE at this time. VITAL SIGNS are WNL, patient is afebrile. ER COURSE: Lungs clear to auscultation, no wheezes, rhonci or rales. patient afebrile. Low suspicion for pneumonia, will not order CXR at this time. does not require breathing treatment at this time, patient denies difficulty breathing, we'll provide Rx for inhaler. no tonsillar exudates, no pharyngeal erythema, history of cough, no fever, no stridor, uvula midline, low suspicion for peritonsillar abscess. Likely viral etiology of symptoms. Likely bronchitis. will provide patient with viscous lidocaine and first dose of prednisone in the ER, discharge home with prednisone begin taking tomorrow, and cough medication. Symptomatic treatment. Take Tylenol for pain symptoms. drink plenty of fluids. Salt water gargles for sore throat. Followup with PCP for further treatment and/or referral as needed. DISCHARGE: -Rx given for Promethazine with codeine syrup for cough sx. CURES reviewed. -Rx given for prednisone -Rx given for albuterol At this time pt is stable for d/c to home. Patient is resting comfortably, in no acute distress, nontoxic appearing. Patient to take medications as instructed Will provide with patient care instructions and any necessary prescriptions. Care plan and follow-up instructions provided. Patient instructed to follow-up with primary care provider in 3 - 5 days. Patient questions asked and answered. Patient reports understanding and agreement to treatment plan. ER precautions given. Patient instructed to return to ER immediately for any new or worsening of symptoms including but not limited to increasing SOB, persistent fever, intractable vomiting. - Please note that this Emergency Department Report was dictated using [employer] SLreworker technology software, occasionally this can lead to erroneous entry secondary to interpretation by the dictation equipment. Last Vital Signs Date Time Temp Pulse Resp B/P (MAP) Pulse Ox O2 Delivery O2 Flow Rate FiO2 02/20/18 12:23 97.9 77 18 129/85 99 Room Air 97.9 Status: improved Disposition: HOME, SELF-CARE Condition: Stable Scripts Albuterol Sulfate* (ALBUTEROL SULFATE MDI*) 8.5 Gm Hfa.aer.ad 2 PUFF INH Q6H, #1 INH 0 Refills Prov: Keith Coe 02/20/18 Prednisone* (PREDNISONE*) 20 Mg Tablet 40 MG ORAL DAILY for 4 Days, TAB Prov: Keith Coe 02/20/18 Codeine/Promethazine Hcl* (PROMETHAZINE-CODEINE SYRUP*) 118 Ml Syrup 5 ML ORAL Q6H PRN for For Cough, #118 ML 0 Refills Prov: Keith Coe 02/20/18 Patient Instructions: Acute Bronchitis, [id number], Upper Respiratory Infection, Adult Additional Instructions: Followup with primary care provider at scheduled appointment, discuss referral to pulmonology for repeated bronchitis and pneumonia symptoms. Discuss further treatment and evaluation at that time. Take medications as directed. Patient questions asked and answered. ER precautions given, patient instructed to return to ER immediately for any new or worsening of symptoms. Keith Coe Feb 20, 2018 12:36
[2018-02-20 12:40] VITALS: BP 128/68
== END 2018-02-20 13:00 | disposition home or self-care (01) ==
LOC: EMR 12:30
DX: J40 Bronchitis, not specified as acute or chronic (principal); Z88.2 Allergy status to sulfonamides; Z88.6 Allergy status to analgesic agent
CPT/HCPCS: 99283; J7512

== ENCOUNTER 2018-02-28 19:22 | Emergency (ER) | payer OTHER ==
[~2018-02-28] VITALS: Ht 167.6 cm; Wt 62.6 kg
[2018-02-28 19:40] VITALS: BP 139/91
[2018-02-28] MEDS ORDERED: Albuterol ud Inhalation HHN ONE (20:30)
[2018-02-28] MEDS ORDERED: Promethazine/Codeine 5ml UD ORAL ONE (20:30)
--- NOTE | 2018-02-28 20:37 | Emergency Room Report ---
History of Present Illness General Chief Complaint: Upper Respiratory Illness Source: Patient Present Illness HPI 42-year-old female presents to the emergency department complaining of nonproductive dry cough times one week with 8 out of 10 in severity pain in the throat and loss of her voice. Patient reports that cough is primarily worse at night. Patient denies epigastric burning sensation and she denies fevers, chills, recent travel or ill contacts. Patient reports that she feels as though every month she's coming down with a cough with similar symptoms. Patient reports history of asthma she tried breathing treatments at home which has not provided relief. Patient states that she did recently finish a course of steroids. She denies CP, Palpitations , Neck Pain or stiffness. Pt. is a former smoker. Allergies: Coded Allergies: FISH CONTAINING PRODUCTS (Unverified Allergy, Unknown, 02/28/18) SULFA (SULFONAMIDE ANTIBIOTICS) (Unverified Allergy, Unknown, 02/28/18) TRAMADOL (Verified Allergy, Unknown, 02/28/18) Patient History Past Medical History: see triage record Past Surgical History: none Pertinent Family History: none Last Menstrual Period: currently Now: No Reviewed Nursing Documentation: PMH: Agreed; PSxH: Agreed Nursing Documentation-PMH Past Medical History: No Stated History Hx Cardiac Problems: No Hx Hypertension: No Hx Pacemaker: No Hx Asthma: No Hx COPD: No Hx Diabetes: No Hx Cancer: No Hx Gastrointestinal Problems: No Hx Dialysis: No Hx Neurological Problems: No Hx Cerebrovascular Accident: No Hx Seizures: No Review of Systems All Other Systems: negative except mentioned in HPI Physical Exam Vital Signs Date Time Temp Pulse Resp B/P (MAP) Pulse Ox O2 Delivery O2 Flow Rate FiO2 02/28/18 19:30 98.2 68 15 139/91 98 Room Air Sp02 EP Interpretation: reviewed, normal General Appearance: no apparent distress, alert, GCS 15, non-toxic Head: normocephalic, atraumatic Eyes: bilateral eye normal inspection, bilateral eye PERRL ENT: hearing grossly normal, normal voice Neck: full range of motion Respiratory: chest non-tender, lungs clear, speaking full sentences, wheezing Cardiovascular #1: regular rate, rhythm Gastrointestinal: normal bowel sounds, non tender, soft Musculoskeletal: back normal, gait/station normal, normal range of motion, non- tender Neurologic: alert, oriented x3, responsive, motor strength/tone normal, sensory intact, normal gait, speech normal, grossly normal Psychiatric: judgement/insight normal Skin: normal color, no rash, warm/dry, well hydrated Lymphatic: no adenopathy Medical Decision Making PA Attestation Dr. Jalloh is my supervising Physician whom patient management has been discussed with. Diagnostic Impression: Primary Impression: Bronchitis ER Course 42-year-old female presents to the emergency department complaining of nonproductive dry cough times one week with 8 out of 10 in severity pain in the throat and loss of her voice. Patient reports that cough is primarily worse at night. Patient denies epigastric burning sensation and she denies fevers, chills, recent travel or ill contacts. Patient reports that she feels as though every month she's coming down with a cough with similar symptoms. Patient reports history of asthma she tried breathing treatments at home which has not provided relief. Patient states that she did recently finish a course of steroids. She denies CP, Palpitations , Neck Pain or stiffness. Pt. is a former smoker. Ddx considered but are not limited to asthma exacerbation, CHF, URI, pneumonia, PE, strep pharyngitis, meningitis, Bronchitis, GERD. Vital signs: Pt. is afebrile, VS are WNL H&PE are most consistent with bronchitis ORDERS: none required at this time, the diagnosis is clinical ED INTERVENTIONS: Albuterol nebulized treatment. - re-examination post nebulized treatment lungs are CTA bilaterally. -D/w pt. suspicion for GERD as well. She needs to establish herself with a youth program director for better control of her symptoms. DISCHARGE: At this time pt. is stable for d/c to home. Will provide printed patient care instructions, and any necessary prescriptions. Care plan and follow up instructions have been discussed with the patient prior to discharge. Last Vital Signs Date Time Temp Pulse Resp B/P (MAP) Pulse Ox O2 Delivery O2 Flow Rate FiO2 02/28/18 19:40 98.5 70 16 139/91 98 Room Air Disposition: HOME, SELF-CARE Condition: Stable Scripts Prednisone* (PREDNISONE*) 20 Mg Tablet 40 MG ORAL DAILY for 4 Days, #8 TAB Prov: Helen White 02/28/18 Albuterol Sulfate* (ALBUTEROL SULFATE HHN*) 2.5 Mg/3 Ml Vial.neb 3 ML INH Q6H PRN for Shortness of Breath, #30 EA 1 Refill Prov: Helen White 02/28/18 Ranitidine Hcl* (ZANTAC*) 150 Mg Tablet 150 MG ORAL TWICE A DAY for 7 Days, #14 TAB Prov: Helen White 02/28/18 Codeine/Promethazine Hcl* (PROMETHAZINE-CODEINE SYRUP*) 118 Ml Syrup 5 ML ORAL Q6H PRN for For Cough, #120 ML 0 Refills Prov: Helen White 02/28/18 Patient Instructions: Acute Bronchitis, [id number] Additional Instructions: Take medications as directed. Follow up with a Primary Care Provider in 3-5 days for [employer] REFERRAL , even if your symptoms have resolved. --Please review list of primary care clinics, if you do not already have a primary care provider Return sooner to ED if new symptoms occur, or current symptoms become worse. Do not drink alcohol, drive, or operate heavy machinery while taking Cough Syrup as this may cause drowsiness. - Please note that this Emergency Department Report was dictated using [employer] trimmer technology software, occasionally this can lead to erroneous entry secondary to interpretation by the dictation equipment. Helen White Feb 28, 2018 20:37
[2018-02-28] MEDS ORDERED: PROMETHAZINE-C118 M1 ORAL (20:50)
[2018-02-28] MEDS ORDERED: ZANTAC150 MG ORAL (20:50)
[2018-02-28] MEDS ORDERED: ALBUTEROL2.5 MG/3 M INH (21:03)
[2018-02-28] MEDS ORDERED: PREDNISONE20 MG ORAL (21:03)
[2018-02-28 21:10] VITALS: BP 139/91
== END 2018-02-28 21:10 | disposition home or self-care (01) ==
LOC: EMR 21:00
DX: J40 Bronchitis, not specified as acute or chronic (principal)
CPT/HCPCS: 94640; 94664; 99284

== ENCOUNTER 2018-04-29 16:10 | Emergency (ER) | payer OTHER ==
[~2018-04-29] VITALS: Ht 167.6 cm; Wt 62.6 kg
[~2018-04-29 16:10] MED LIST changes: +ZANTAC150 MG ORAL
[2018-04-29 16:18] VITALS: BP 133/91
[2018-04-29] MEDS ORDERED: NKM (16:18)
--- NOTE | 2018-04-29 17:12 | Emergency Room Report ---
History of Present Illness General Chief Complaint: Upper Respiratory Illness Source: Medical Record Present Illness HPI 42 -year-old female presents to the emergency department complaining of 8 out of 10 in severity painful cough 2 days. Patient reports exacerbation of her asthma and reports having wheezing and needing to use her treatments at home regularly. Patient states she also has a headache and nasal congestion as well. Patient states she has pulmonology follow-up appointment in May. Denies fevers or chills, ill contacts or recent travel. Denies sore throat, ear pain, photophobia, neck pain or stiffness. denies Palpitations or cardiac hx. Allergies: Coded Allergies: FISH CONTAINING PRODUCTS (Unverified Allergy, Unknown, 02/28/18) SULFA (SULFONAMIDE ANTIBIOTICS) (Unverified Allergy, Unknown, 02/28/18) TRAMADOL (Verified Allergy, Unknown, 02/28/18) Patient History Past Medical History: see triage record Past Surgical History: none Pertinent Family History: none Last Menstrual Period: 04/23/18 Now: No Immunizations: UTD Reviewed Nursing Documentation: PMH: Agreed; PSxH: Agreed Nursing Documentation-PMH Past Medical History: No History, Except For Hx Cardiac Problems: No Hx Hypertension: No Hx Pacemaker: No Hx Asthma: No Hx COPD: No Hx Diabetes: No Hx Cancer: No Hx Gastrointestinal Problems: No Hx Dialysis: No History Of Psychiatric Problem: No Hx Neurological Problems: No Hx Cerebrovascular Accident: No Hx Seizures: No Review of Systems All Other Systems: negative except mentioned in HPI Physical Exam Vital Signs Date Time Temp Pulse Resp B/P (MAP) Pulse Ox O2 Delivery O2 Flow Rate FiO2 04/29/18 16:15 98.2 77 18 133/91 99 Room Air Sp02 EP Interpretation: reviewed, normal General Appearance: no apparent distress, alert, GCS 15, non-toxic Head: normocephalic, atraumatic Eyes: bilateral eye normal inspection, bilateral eye PERRL ENT: hearing grossly normal, normal voice, nasal congestion Neck: full range of motion, no meningismus, no bony tend Respiratory: chest non-tender, lungs clear, no respiratory distress, speaking full sentences, wheezing Cardiovascular #1: regular rate, rhythm, normal capillary refill Musculoskeletal: back normal, gait/station normal, normal range of motion, non- tender Neurologic: alert, oriented x3, responsive, motor strength/tone normal, sensory intact, speech normal, grossly normal Psychiatric: judgement/insight normal Skin: normal color, no rash, warm/dry, well hydrated Lymphatic: no adenopathy Medical Decision Making PA Attestation Dr. gavin is my supervising Physician whom patient management has been discussed with. Diagnostic Impression: Primary Impression: Bronchitis ER Course 42 -year-old female presents to the emergency department complaining of 8 out of 10 in severity painful cough 2 days. Patient reports exacerbation of her asthma and reports having wheezing and needing to use her treatments at home regularly. Patient states she also has a headache and nasal congestion as well. Patient states she has pulmonology follow-up appointment in May. Denies fevers or chills, ill contacts or recent travel. Denies sore throat, ear pain, photophobia, neck pain or stiffness. denies Palpitations or cardiac hx. Ddx considered but are not limited to URI, pneumonia, PE, strep pharyngitis, meningitis. Vital signs: Pt.is afebrile VS are WNL H&PE are most consistent with bronchitis ORDERS: none required at this time, the diagnosis is clinical ED INTERVENTIONS: None required at this time. DISCHARGE: At this time pt. is stable for d/c to home. Will provide printed patient care instructions, and any necessary prescriptions. Care plan and follow up instructions have been discussed with the patient prior to discharge. Last Vital Signs Date Time Temp Pulse Resp B/P (MAP) Pulse Ox O2 Delivery O2 Flow Rate FiO2 04/29/18 16:18 98.2 77 18 133/91 99 Room Air Disposition: HOME, SELF-CARE Condition: Stable Patient Instructions: Acute Bronchitis, [id number] Additional Instructions: Take medications as directed. Follow up with a Primary Care Provider in 3-5 days, even if your symptoms have resolved. --Please review list of primary care clinics, if you do not already have a primary care provider Return sooner to ED if new symptoms occur, or current symptoms become worse. Do not drink alcohol, drive, or operate heavy machinery while taking Cough Syrup as this may cause drowsiness. - Please note that this Emergency Department Report was dictated using [employer] shifter technology software, occasionally this can lead to erroneous entry secondary to interpretation by the dictation equipment. Helen White Apr 29, 2018 17:12
[2018-04-29] MEDS ORDERED: PROMETHAZINE-C118 M1 ORAL (17:14)
[2018-04-29] MEDS ORDERED: PREDNISONE20 MG ORAL (17:14)
[2018-04-29] MEDS ORDERED: ALBUTEROL SULF8.5 GM INH (17:14)
[2018-04-29 17:18] VITALS: BP 133/91
== END 2018-04-29 17:18 | disposition home or self-care (01) ==
LOC: EMR 16:52
DX: J40 Bronchitis, not specified as acute or chronic (principal); Z91.018 Allergy to other foods; Z88.6 Allergy status to analgesic agent; Z88.2 Allergy status to sulfonamides
CPT/HCPCS: 99282

== ENCOUNTER 2018-06-07 09:48 | Emergency (ER) | payer OTHER ==
[~2018-06-07] VITALS: Ht 167.6 cm; Wt 64.4 kg
[2018-06-07] MEDS ORDERED: NKM (09:55)
[2018-06-07 10:11] VITALS: BP 124/79
[2018-06-07] MEDS ORDERED: IBUPROFEN600 MG ORAL (11:02)
[2018-06-07 11:08] VITALS: BP 126/82
--- NOTE | 2018-06-07 11:15 | Diagnostic Imaging Report ---
Indication: Pain, trauma one day ago Technique: 3 views of the left shoulder Comparison: none Findings: No acute fractures. No dislocations. The joint spaces are preserved. Impression: Negative
--- NOTE | 2018-06-07 11:16 | Diagnostic Imaging Report ---
Normal 1 view chest Indication: Reason For Exam: COUGH Technique: One view of the chest Comparison: 06/28/2017 Findings: Lungs and pleural spaces are clear. Heart size is normal . No significant change Impression: No acute process
--- NOTE | 2018-06-07 13:58 | Emergency Room Report ---
History of Present Illness General Chief Complaint: Multiple Trauma/Fall Source: Patient Present Illness HPI Patient presents with complaints of cough ongoing for the past several months Patient reports that once a year she does get bronchitis Also reports that she had a fall yesterday onto her left shoulder has left shoulder pain Denies any chest pain denies any vomiting or diarrhea denies any neck pain Pain to the left shoulder is anterior and worse with movement and touch Denies any bloody sputum with the cough denies any sensation of shortness of breath Allergies: Coded Allergies: FISH CONTAINING PRODUCTS (Unverified Allergy, Unknown, 02/28/18) SULFA (SULFONAMIDE ANTIBIOTICS) (Unverified Allergy, Unknown, 02/28/18) TRAMADOL (Verified Allergy, Unknown, 02/28/18) Patient History Past Medical History: see triage record Pertinent Family History: none Last Menstrual Period: 05/14/18 Reviewed Nursing Documentation: PMH: Agreed; PSxH: Agreed Nursing Documentation-PMH Past Medical History: No Stated History Hx Cardiac Problems: No Hx Hypertension: No Hx Pacemaker: No Hx Asthma: No Hx COPD: No Hx Diabetes: No Hx Cancer: No Hx Gastrointestinal Problems: No Hx Dialysis: No Hx Neurological Problems: No Hx Cerebrovascular Accident: No Hx Seizures: No Review of Systems All Other Systems: negative except mentioned in HPI Physical Exam Vital Signs Date Time Temp Pulse Resp B/P (MAP) Pulse Ox O2 Delivery O2 Flow Rate FiO2 06/07/18 09:52 98.1 95 18 122/84 95 Room Air Sp02 EP Interpretation: reviewed, normal General Appearance: well appearing, no apparent distress Head: normocephalic, atraumatic Eyes: bilateral eye PERRL, bilateral eye EOMI ENT: hearing grossly normal, normal pharynx, TMs + canals normal, uvula midline Neck: full range of motion, supple, no meningismus, no bony tend Respiratory: lungs clear, normal breath sounds, no rhonchi, no respiratory distress, no retraction, no accessory muscle use Cardiovascular #1: normal peripheral pulses, regular rate, rhythm, no edema, no gallop, no JVD, no murmur Gastrointestinal: normal bowel sounds, non tender, soft, no mass, no organomegaly, non-distended, no guarding, no hernia, no pulsatile mass, no rebound Genitourinary: no CVA tenderness Musculoskeletal: other - Some discomfort on palpation anterior left shoulder, patient able to raise to approximately 45 and the discomfort begins sensory intact good adhesive primer Neurologic: oriented x3, responsive, fuel cell systems engineer III-XII nml as tested, motor strength/ tone normal, sensory intact Psychiatric: mood/affect normal Skin: normal color, no rash, warm/dry, palpation normal Lymphatic: normal inspection, no adenopathy Medical Decision Making Diagnostic Impression: Primary Impression: cough Additional Impression: shoulder contusion ER Course Given the patient's complaints imaging studies were obtained Chest x-ray was clear left shoulder was negative On review of CURES databank patient has multiple opiates prescribed by different providers Patient is discussed regarding safe pain medicine prescribing campaign And will have close outpatient follow-up Chest X-Ray Diagnostic Results Chest X-Ray Diagnostic Results : Chest X-Ray Ordered: Yes # of Views/Limited/Complete: 1 View Indication: Other - Cough EP Interpretation: Yes Interpretation: no consolidation, no effusion, no pneumothorax Impression: No acute disease Electronically Signed by: Evangelina Mcclure DO Other X-Ray Diagnostic Results Other X-Ray Diagnostic Results : X-Ray ordered: Left shoulder # of Views/Limited Vs Complete: 3 View Indication: Pain EP Interpretation: Yes Interpretation: no dislocation, no soft tissue swelling, no fractures Impression: No acute disease Electronically Signed by: Evangelina Mcclure DO Last Vital Signs Date Time Temp Pulse Resp B/P (MAP) Pulse Ox O2 Delivery O2 Flow Rate FiO2 06/07/18 11:08 98.1 79 21 126/82 98 Room Air Status: improved Disposition: HOME, SELF-CARE Condition: Improved Scripts Ibuprofen* (MOTRIN*) 600 Mg Tablet 600 MG ORAL Q8H PRN for For Pain, #20 TAB 0 Refills Prov: Evangelina Mcclure DO 06/07/18 Referrals: NOMAN LI,REFERRING (PCP) Patient Instructions: Cough, Adult, [id number], Shoulder Sprain Additional Instructions: Patient is provided with the discharge instructions notified to follow up with primary doctor in the next 2-3 days otherwise return to the er with any worsening symptoms. Please note that this report is being documented using [place] [place] technology. This can lead to erroneous entry secondary to incorrect interpretation by the dictating instrument. Evangelina Mcclure DO Jun 07, 2018 13:58
== END 2018-06-07 11:08 | disposition home or self-care (01) ==
LOC: EMR 10:27
DX: R05 Cough (principal); S40.012A Contusion of left shoulder, initial encounter; W19.XXXA Unspecified fall, initial encounter; Y92.9 Unspecified place or not applicable; Z88.2 Allergy status to sulfonamides; Z88.6 Allergy status to analgesic agent
CPT/HCPCS: 71045; 99284

== ENCOUNTER 2018-07-09 15:54 | Emergency (ER) | payer OTHER ==
[~2018-07-09] VITALS: Ht 167.6 cm; Wt 62.1 kg
[2018-07-09 16:10] VITALS: BP 136/82
--- NOTE | 2018-07-09 16:10 | NUR ---
ED Nurse Note: PT WALKED IN TO ER TODAY FROM HOME. AOX4. PT C/O PRODUCTIVE COUGH AND GENERALIZED BODY PAIN, 10/10 X 2 WEEKS AGO WELL NAUSEA AND 3 EPISODES OF VOMITING X 1 WEEK AGO. PT DENIES ABDOMINAL PAIN. NO COUGH PRESENT ON ASSESSMENT. ACTIVE BOWEL SOUNDS IN ALL QUADRANTS. ABDOMEN NONDISTENDED AND NONTENDER TO PALPATION.
--- NOTE | 2018-07-09 16:25 | NUR ---
ED Nurse Note: RT AT BEDSIDE
--- NOTE | 2018-07-09 16:26 | Emergency Room Report ---
History of Present Illness General Chief Complaint: General Complaint Source: Patient Present Illness HPI 42-year-old female patient presents the ER complaining of cough and shortness of breath for the past 3 weeks. Reports cough with sputum. Denies hemoptysis. Denies recent travel outside the country. Reports upper chest pain with cough , states pain is reproducible. Denies history of heart attack or stroke. States does not smoke cigarettes anymore, states is not been smoking for the past 3 months. Denies history of heart attack. Denies recent travel outside the country. Denies recent periods of immobilization. Reports symptoms began after waking up when it was cold in her house one morning. Denies contacts at home with similar symptoms. States his been taking Motrin for relief of pain symptoms. States his been using inhaler with mild relief of breathing symptoms. Denies fever. Denies other aggravating or relieving factors. Reports history of pneumonia. Allergies: Coded Allergies: FISH CONTAINING PRODUCTS (Unverified Allergy, Unknown, 02/28/18) SULFA (SULFONAMIDE ANTIBIOTICS) (Unverified Allergy, Unknown, 02/28/18) TRAMADOL (Verified Allergy, Unknown, 02/28/18) Patient History Past Medical History: see triage record Last Menstrual Period: now Now: No Reviewed Nursing Documentation: PMH: Agreed; PSxH: Agreed Nursing Documentation-PMH Past Medical History: No Stated History Hx Cardiac Problems: No Hx Hypertension: No Hx Pacemaker: No Hx Asthma: No Hx COPD: No Hx Diabetes: No Hx Cancer: No Hx Gastrointestinal Problems: No Hx Dialysis: No Hx Neurological Problems: No Hx Cerebrovascular Accident: No Hx Seizures: No Review of Systems All Other Systems: negative except mentioned in HPI Physical Exam Vital Signs Date Time Temp Pulse Resp B/P (MAP) Pulse Ox O2 Delivery O2 Flow Rate FiO2 07/09/18 16:05 98.2 66 18 142/89 98 Room Air Sp02 EP Interpretation: reviewed, normal General Appearance: well appearing, no apparent distress, alert, GCS 15, non- toxic Head: normocephalic, atraumatic Eyes: bilateral eye normal inspection, bilateral eye PERRL ENT: hearing grossly normal, normal pharynx, no angioedema, normal voice, uvula midline, moist mucus membranes Neck: full range of motion, no meningismus, no bony tend Respiratory: lungs clear, no rhonchi, no respiratory distress, no accessory muscle use, decreased breath sounds, speaking full sentences, wheezing, other - Chest tender to palpation, no deformity, no flail chest, chest symmetrical Cardiovascular #1: regular rate, rhythm, no edema Gastrointestinal: non tender, soft, no mass, non-distended, no guarding, no rebound Musculoskeletal: back normal, digits/nails normal, gait/station normal, normal range of motion, non-tender, no calf tenderness, Collette's Sign negative Neurologic: alert, oriented x3, responsive, motor strength/tone normal, sensory intact Psychiatric: mood/affect normal Skin: no rash Medical Decision Making PA Attestation Dr. Abad is my supervising Physician whom patient management has been discussed with. Diagnostic Impression: Primary Impression: Atypical pneumonia Additional Impression: Bronchitis ER Course Pt presents to ED c/o cough and shortness of breath. DDX considered but are not limited to asthma, viral URI, influenza, bronchitis, pneumonia, costochondritis, sepsis, PE. On PE, chest is TTP; chest pain likely musculoskeletal in nature secondary to cough, does not require cardiac workup at this time. Patient instructed to take NSAIDs as needed for pain symptoms. No tachycardia, afebrile, negative Homans sign, no recent period of Immobilization, no hemoptysis, does not require PE workup at this time, low suspicion for PE. VITAL SIGNS are WNL, patient is afebrile. Ordered breathing treatment and medication. ER COURSE Patient provided with prednisone Duoneb breathing treatment provided. Following treatment patient states no longer having difficulty with breathing. Lung sounds improved. Patient is resting comfortably in no acute distress. Chest x-ray negative for acute disease however due to chronicity of symptoms will provide patient with antibiotics to cover for possible atypical pneumonia. Follow-up with PCP for further treatment referral. ER precautions given. DISCHARGE: At this time pt is stable for d/c to home. Patient is resting comfortably in no acute distress, nontoxic appearing, able to answer questions without difficulty. Patient to take medications as instructed Will provide with patient care instructions and any necessary prescriptions. Care plan and follow-up instructions provided. Patient instructed to follow-up with primary care provider in 3 - 5 days. Patient questions asked and answered. Patient reports understanding and agreement to treatment plan. ER precautions given. Patient instructed to return to ER immediately for any new or worsening of symptoms including but not limited to increasing SOB, persistent fever. - Please note that this Emergency Department Report was dictated using [employer] technology software, occasionally this can lead to erroneous entry secondary to interpretation by the dictation equipment. Chest X-Ray Diagnostic Results Chest X-Ray Diagnostic Results : Chest X-Ray Ordered: Yes # of Views/Limited/Complete: 1 View Indication: Chest Pain EP Interpretation: Yes PA Xray: Interpretation reviewed, by supervising MD, and agrees with findings. Interpretation: no consolidation, no effusion, no pneumothorax, no acute cardiopulmonary disease Impression: No acute disease FRANCINE ScribJamee Coe PA-C Last Vital Signs Date Time Temp Pulse Resp B/P (MAP) Pulse Ox O2 Delivery O2 Flow Rate FiO2 07/09/18 16:10 64 16 Room Air 07/09/18 16:10 98.4 136/82 99 Status: improved Disposition: HOME, SELF-CARE Condition: Stable Scripts Prednisone* (PREDNISONE*) 20 Mg Tablet 40 MG ORAL DAILY for 4 Days, #8 TAB Prov: Keith oCe 07/09/18 Benzonatate* (TESSALON PERLE*) 100 Mg Capsule 100 MG ORAL THREE TIMES A DAY, #30 PERLE Prov: Keith Coe 07/09/18 Azithromycin* (ZITHROMAX*) 250 Mg Tablet 250 MG ORAL DAILY, #6 TAB 0 Refills Take two tables once daily for 1 day, then one tablet once daily for 4 days. Prov: Keith Coe 07/09/18 Ibuprofen* (MOTRIN*) 600 Mg Tablet 600 MG ORAL Q8H PRN for For Pain, #30 TAB 0 Refills Prov: Keith Coe 07/09/18 Albuterol Sulfate* (ALBUTEROL SULFATE MDI*) 8.5 Gm Hfa.aer.ad 2 PUFF INH Q6H, #1 INH 0 Refills Prov: Keith Coe 07/09/18 Patient Instructions: Acute Bronchitis, [id number], Community-Acquired Pneumonia, Adult, [id number], Costochondritis, [id number] Additional Instructions: Followup with primary care provider in 3 -5 days. Take Tylenol Motrin for pain. Take medications as directed. Patient questions asked and answered. ER precautions given, patient instructed to return to ER immediately for any new or worsening of symptoms. Keith Coe 5, 2019 16:26
[2018-07-09] MEDS ORDERED: Albuterol/Ipratropium 3ml neb HHN ONE (16:30)
[2018-07-09] MEDS ORDERED: Benzonatate 100mg Perles ORAL ONE (16:30)
--- NOTE | 2018-07-09 16:54 | Diagnostic Imaging Report ---
Indication: Chest pain Technique: One view of the chest Comparison: 06/07/2018 Findings: Lungs and pleural spaces are clear. Heart size is normal. No significant interim change Impression: No acute process
[2018-07-09] MEDS ORDERED: IBUPROFEN600 MG ORAL (16:55)
[2018-07-09] MEDS ORDERED: PREDNISONE20 MG ORAL (16:55)
[2018-07-09] MEDS ORDERED: TESSALON PERLE100 MG ORAL (16:55)
[2018-07-09] MEDS ORDERED: ZITHROMAX250 MG ORAL (16:55)
[2018-07-09] MEDS ORDERED: ALBUTEROL SULF8.5 GM INH (16:55)
[2018-07-09 16:59] VITALS: BP 132/84
== END 2018-07-09 16:59 | disposition home or self-care (01) ==
LOC: EMR 16:40
DX: J18.9 Pneumonia, unspecified organism (principal); J40 Bronchitis, not specified as acute or chronic; Z88.2 Allergy status to sulfonamides; Z88.5 Allergy status to narcotic agent
CPT/HCPCS: 71045; 94640; 99284; J7512; J7620